=== PATIENT | male | born 1960 | race Two or more races ===

== ENCOUNTER → 2018-07-05 | Outpatient (CLI) | payer BC | LOC: FIMAGING 17:00 | PROVIDERS: ATTEND Family Medicine | DX: R50.9 Fever, unspecified (principal) ==

== ENCOUNTER 2018-07-09 13:55 | Observation (INO) | payer BC ==
[2018-07-09 14:32] LABS: PLATELET COUNT 230 10^3/uL (150-400)
[2018-07-09] MEDS ORDERED: fentaNYL 100 MCG/2 ML INJ IVP ONE (14:34)
[2018-07-09] MEDS ORDERED: NS 1,000 ML IV ONE (14:34)
[2018-07-09] MEDS ORDERED: ONDANSETRON DISINTEGRATING 4 MG TAB PO PRN (15:49)
[2018-07-09] MEDS ORDERED: ACETAMINOPHEN 325 MG TAB PO PRN (15:49)
[2018-07-09] MEDS ORDERED: ONDANSETRON 4 MG/2 ML VIAL IVP PRN (15:49)
--- NOTE | 2018-07-09 15:56 | EDPHY ---
H & P Stated Complaint: N/V/body aches Time Seen by Provider: 07/09/18 13:58 HPI/ROS: CHIEF COMPLAINT: Diarrhea, vomiting HISTORY OF PRESENT ILLNESS: This is a 58-year-old male referred to the emergency department from his primary care physician's office, Dr. Nery Le. Patient reports traveling out of the state and returning from [place] on Sunday, June 30. Several days later he developed an abrupt onset of cold symptoms, chills, fever, and cough. He was seen on July [address] Le office. Influenza, strep and chest x-ray were all negative. Patient then reports that on July 06 and he developed abdominal discomfort and diarrhea. Watery diarrhea with no blood. Multiple bouts. Diarrhea has somewhat subsided but today the patient had vomiting and presented to his primary care physician's office. He denies any ongoing fevers. He has had some lightheadedness but no fainting. No travel outside the [facility]. Denies any ingestion of scarlet lettuce. REVIEW OF SYSTEMS: A comprehensive 10 system review of systems was reviewed and is otherwise negative aside from elements mentioned in the history of present illness and medical decision making. 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 VITAL SIGNS Reviewed by me. GENERAL: Well-developed, well-nourished, resting comfortably in no respiratory distress. HEENT: Atraumatic. Eyes: No icterus, no injection. Mouth: Dry lips, slightly dry mucous membranes. No erythema or lesions. Neck: supple with no adenopathy. LUNGS: Clear to auscultation bilaterally, no wheezes, rhonchi or rales. CARDIAC: Regular rate and rhythm, no rubs, murmurs or gallops. ABDOMEN: Soft, mild inconsistent abdominal tenderness, no guarding or rebound. Nondistended, bowel sounds normal. BACK: No CVA tenderness. EXTREMITIES: No trauma. No edema. Range of motion is normal throughout. NEURO: Alert and oriented, grossly nonfocal. SKIN: Warm and dry, no rash. PSYCHIATRIC: Normal mentation, no agitation. - Medical/Surgical History Hx Asthma: No Hx Chronic Respiratory Disease: No Hx Diabetes: No Hx Cardiac Disease: No Hx Renal Disease: No Hx Cirrhosis: No Hx Alcoholism: No Hx HIV/AIDS: No Hx Splenectomy or Spleen Trauma: No Other PMH: hypothyroid, - Social History Smoking Status: Current every day smoker Constitutional: Initial Vital Signs Temperature (C) 36.6 C 07/09/18 13:57 Heart Rate 67 07/09/18 13:57 Respiratory Rate 18 07/09/18 13:57 Blood Pressure 111/78 07/09/18 13:57 O2 Sat (%) 98 07/09/18 13:57 O2 Delivery Mode Room Air Allergies/Adverse Reactions: Penicillins Allergy (Verified 07/09/18 15:47) Other-Enter Comments Home Medications: Medication Instructions Recorded Levothyroxine [Synthroid 112 mcg 112 mcg PO DAILY06 03/06/18 (*)] Lisinopril [Zestril 10 mg (*)] 10 mg PO DAILY 07/09/18 Metoprolol Succinate Xr [Toprol Xl 25 mg PO DAILY 07/09/18 25 mg (*)] Acetaminophen [Tylenol 325mg (*)] 650 mg PO Q4HRS PRN tab 07/10/18 Benzonatate [Tessalon Pearles] 100 mg PO TID PRN #21 cap 07/10/18 Oseltamivir Phosphate [Tamiflu 75 75 mg PO BIDMEAL #8 cap 07/10/18 mg (*)] Medical Decision Making ED Course/Re-evaluation: 58-year-old male presenting with fever, chills, cough which has now resolved, but then developed diarrhea. Patient looks quite well. IV was placed and patient received a L normal saline. CBC unremarkable. Chemistries demonstrated creatinine of 2.9. Patient's most recent creatinine was 0.8 in March. I discussed the lab tests with the patient. He understands that he has developed acute renal insufficiency probably secondary to diarrheal dehydration. Patient will be admitted to the hospital. Consult with Dr. Wang , who [facility]. Of note, patient's GI pathogen panel was negative. Differential Diagnosis: Differential diagnosis for the patient's diarrhea was considered including but not limited to gastroenteritis, colitis, diverticulitis, bacterial dysentery, viral diarrhea, medication effect, and malabsorption syndrome. Consult/Admit Bed Type: Dr. Wang, [facility] - Data Points Laboratory Results: Laboratory Results 07/09/18 14:20 07/09/18 14:20 Medications Given: Benzonatate (Tessalon Pearles) 100 mg PO TID PRN PRN Reason: Cough, Mild Stop: 01/05/19 23:03 Last Admin: 07/09/18 23:13 Dose: 100 mg Sodium Chloride (Ns) 1,000 mls @ 100 mls/hr IV CONT JENN Stop: 01/05/19 15:59 Last Admin: 07/09/18 18:33 Dose: 1,000 mls Levothyroxine Sodium (Synthroid) 112 mcg PO DAILY06 [facility] Stop: 01/06/19 05:59 Last Admin: 07/10/18 05:01 Dose: 112 mcg Metoprolol Succinate (Toprol Xl) 25 mg PO DAILY JENN Stop: 01/06/19 08:59 Last Admin: 07/10/18 10:53 Dose: 25 mg Oseltamivir Phosphate (Tamiflu) 75 mg PO BIDMEAL [facility] Stop: 07/14/18 08:01 Last Admin: 07/10/18 10:55 Dose: 75 mg Discontinued Medications Fentanyl (Sublimaze) 50 mcg IVP EDNOW ONE Stop: 07/09/18 14:35 Last Admin: 07/09/18 14:47 Dose: 50 mcg Sodium Chloride (Ns) 1,000 mls @ 0 mls/hr IV ONCE ONE; Wide Open PRN Reason: Protocol Stop: 07/09/18 14:35 Last Admin: 07/09/18 14:46 Dose: 1,000 mls Oseltamivir Phosphate (Tamiflu Oral Suspension) 30 mg PO BIDMEAL [facility] Stop: 07/14/18 08:01 Last Admin: 07/10/18 10:56 Dose: Not Given Departure - Departure Disposition: [facility] Acute Clinical Impression: Acute renal insufficiency Diarrhea Qualifiers: Diarrhea type: unspecified type Qualified Code(s): R19.7 - Diarrhea, unspecified Condition: Fair
[2018-07-09] MEDS ORDERED: NS 1,000 ML IV SCH (16:00)
--- NOTE | 2018-07-09 16:48 | PDGENHP ---
History and Physical - Chief Complaint Abdominal pain, N/V - History of Present Illness 58 y/o male presents with abdominal discomfort, N/V, cough, malaise, body aches , and diarrhea. He returned from [place] last Sunday and by , he began to have diarrhea, non-productive cough, night sweats and fevers. He did not have an appetite and was unable to keep anything down. He generally felt weak. He f/u with his PCP, Dr. Le on 07/05/18 and influenza PCR at that time was negative. He reports the diarrhea has subsided but he continues to have abdominal cramping and discomfort, nausea, and one episode of emesis today. He denies SOB, chest pains, dysuria, headache. Past Medical/Surgical History 1. Hypertension 2. Hypothyroid 3. Cardiomyopathy 4. Thoracic aortic aneurysm w/o rupture Social 1. 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 Stopped smoking cigarettes 3-4 months ago; recently went on vacation in [place] and smoked 1/2 pack for the 4 days he was there. Denies illicit drug use. 3. Drinks 1-2 alcohol drinks/week but while in [place], drank "alot" which included 2-3 cocktail drinks per day Vital Signs 111/78 67 HR 98% RA 36.6c 18 Respirations History Information - Allergies/Home Medication List Allergies/Adverse Reactions: Penicillins Allergy (Verified 07/09/18 15:47) Other-Enter Comments Home Medications: Levothyroxine [Synthroid 112 mcg (*)] 112 mcg PO DAILY06 03/06/18 [Last Taken AM] Lisinopril [Zestril 10 mg (*)] 10 mg PO DAILY 07/09/18 [Last Taken 07/08/18] Metoprolol Succinate Xr [Toprol Xl 25 mg (*)] 25 mg PO DAILY 07/09/18 [Last Taken 07/08/18] I have personally reviewed and updated: family history, medical history, social history, surgical history Past Medical History: See HPI List - Surgical History Additional surgical history: See HPI List - Family History Positive for: myocardial infarction Additional family history: Mother of [place] at age 86 y/o. Father is still alive at 99 y/o and is generally healthy - Social History Smoking Status: Current every day smoker Alcohol Use: Rarely Drug Use: None Review of Systems Review of Systems: ROS: 10pt was reviewed & negative except for what was stated in HPI & below Constitutional: Reports: malaise, recent illness, weakness, weight loss (He reports losing 10 lbs in 3 days) EENMT: Reports: no symptoms Cardiac: Reports: lightheadedness Respiratory: Reports: cough (Non-productive) Gastrointestinal: Reports: vomitting (Occurred one time this morning; orange color because of the liquids he attempting to drink), abdominal pain (Cramping) , diarrhea (Denies melena), nausea Genitourinary: Reports: no symptoms Muscolosketal: Reports: other (Body aches) Skin: Reports: no symptoms Neurological: Reports: weakness Hematologic/Lymphatic: Reports: no symptoms Immunologic/Allergy: Reports: other Physical Exam Physical Exam: Lab data reviewed Na: 132 Anion Gap: 15 Creatinine/BUN: 2.9/50 Lipase: 464 CXR 07/05/18: No acute processes Temp Pulse Resp BP Pulse Ox 36.6 C 76 18 121/76 H 96 07/09/18 13:57 07/09/18 16:00 07/09/18 16:00 07/09/18 16:00 07/09/18 16:00 Constitutional: appears nourished, uncomfortable, other (Pleasant, cooperative patient who is in no apparent distress) Eyes: PERRL, anicteric sclera, EOMI Ears, Nose, Mouth, Throat: hearing normal, ears appear normal, no oral mucosal ulcers, dry mucous membranes Cardiovascular: regular rate and rhythym, systolic murmur Peripheral Pulses: 2+: dorsalis-pedis (R) (Radial 2+), dorsalis-pedis (L) ( Radial 2+) Respiratory: no respiratory distress, no rales or rhonchi, clear to auscultation Gastrointestinal: normoactive bowel sounds, tenderness, other (Tender to LUQ; abdomen soft and round. No guarding, rebounding, roving's sign, holland's sign. No CVA tenderness. ) Genitourinary: no bladder fullness, no bladder tenderness Skin: warm, normal color, no rashes or abrasions, no fluctuance, no induration, No mottled Musculoskeletal: full muscle strength, no muscle tenderness, normal joint ROM, no joint effusions Neurologic: AAOx3, sensation intact bilaterally, CN II-XII Intact Psychiatric: interacting appropriately, not anxious, not encephalopathic, thought process linear Lymph, Heme, Immunologic: no cervical LAD, no supraclavicular LAD Lab Data & Imaging Review 07/09/18 14:20 07/09/18 14:20 WBC 4.71 10^3/uL (3.80-9.50) 07/09/18 14:20 RBC 5.71 10^6/uL (4.40-6.38) 07/09/18 14:20 Hgb 15.4 g/dL (13.7-17.5) 07/09/18 14:20 Hct 44.7 % (40.0-51.0) 07/09/18 14:20 MCV 78.3 fL (81.5-99.8) L 07/09/18 14:20 MCH 27.0 pg (27.9-34.1) L 07/09/18 14:20 MCHC 34.5 g/dL (32.4-36.7) 07/09/18 14:20 RDW 15.1 % (11.5-15.2) 07/09/18 14:20 Plt Count 230 10^3/uL (150-400) 07/09/18 14:20 MPV 9.7 fL (8.7-11.7) 07/09/18 14:20 Neut % (Auto) 70.9 % (39.3-74.2) 07/09/18 14:20 Lymph % (Auto) 20.4 % (15.0-45.0) 07/09/18 14:20 [place] % (Auto) 8.1 % (4.5-13.0) 07/09/18 14:20 Eos % (Auto) 0.0 % (0.6-7.6) L 07/09/18 14:20 Baso % (Auto) 0.4 % (0.3-1.7) 07/09/18 14:20 Nucleat RBC Rel Count 0.0 % (0.0-0.2) 07/09/18 14:20 Absolute Neuts (auto) 3.34 10^3/uL (1.70-6.50) 07/09/18 14:20 Absolute Lymphs (auto) 0.96 10^3/uL (1.00-3.00) L 07/09/18 14:20 Absolute Monos (auto) 0.38 10^3/uL (0.30-0.80) 07/09/18 14:20 Absolute Eos (auto) 0.00 10^3/uL (0.03-0.40) L 07/09/18 14:20 Absolute Basos (auto) 0.02 10^3/uL (0.02-0.10) 07/09/18 14:20 Absolute Nucleated RBC 0.00 10^3/uL (0-0.01) 07/09/18 14:20 Immature Gran % 0.2 % (0.0-1.1) 07/09/18 14:20 Immature Gran # 0.01 10^3/uL (0.00-0.10) 07/09/18 14:20 Sodium 132 mEq/L (135-145) L 07/09/18 14:20 Potassium 4.2 mEq/L (3.5-5.2) 07/09/18 14:20 Chloride 98 mEq/L (97-110) 07/09/18 14:20 Carbon Dioxide 19 mEq/l (22-31) L 07/09/18 14:20 Anion Gap 15 mEq/L (6-14) H 07/09/18 14:20 BUN 50 mg/dL (7-23) H 07/09/18 14:20 Creatinine 2.9 mg/dL (0.7-1.3) H 07/09/18 14:20 Estimated GFR 22 07/09/18 14:20 Glucose 148 mg/dL (70-100) H 07/09/18 14:20 Calcium 7.9 mg/dL (8.5-10.4) L 07/09/18 14:20 Total Bilirubin 0.7 mg/dL (0.1-1.4) 07/09/18 14:20 Conjugated Bilirubin 0.3 mg/dL (0.0-0.5) 07/09/18 14:20 Unconjugated Bilirubin 0.4 mg/dL (0.0-1.1) 07/09/18 14:20 AST 66 IU/L (17-59) H 07/09/18 14:20 ALT 53 IU/L (21-72) 07/09/18 14:20 Alkaline Phosphatase 84 IU/L (38-126) 07/09/18 14:20 Troponin I < 0.012 ng/mL (0.000-0.034) 07/09/18 14:20 Total Protein 7.8 g/dL (6.3-8.2) 07/09/18 14:20 Albumin 4.3 g/dL (3.5-5.0) 07/09/18 14:20 Lipase 464 IU/L (23-300) H 07/09/18 14:20 Assessment & Plan Plan: 58 y/o male presents with approximately 5 days worth of general malaise, diarrhea, cough, and abdominal cramping and discomfort. He has not been able to keep any food or liquids down. 1. Acute Kidney Injury: creatinine 2.9. I suspect hypovolemia secondary to poor oral intake and diarrhea -IVF -CBC/CMP tomorrow -Avoid nephrotoxic medications; holding his Lisinopril -Abdominal US 2. Diarrhea: his last bout of diarrhea was yesterday. Could be viral. -GI PCR Pathogen on 07/05 was negative -Encourage fluids/food -IVF 3. Cough -Influenza Pathogen on 07/05 was negative -Respiratory PCR Pathogen pending 4. Abdominal cramping/discomfort -IVF -Encourage fluids/food -Anti-emetics PRN for nausea -Abdominal US - lipase 464 5. Hypertension -May continue metoprolol XR -Continue to monitor -Echo on 03/23 showed LVEF 64%, ascending thoracic aorta 4.1 cm w/o dissection or rupturing symptoms. Stress test for 10 minutes with no ischemia and good BP control. -Educated pt on tobacco cessation -Reminded pt to f/u with Dr. Galan in October 2018 6. Hypothyroidism -May continue levothyroxine Diet: Regular VTE ppx: SCDs Code: Full Dispo: Admit to obs
[2018-07-09] MEDS: OSELTAMIVIR 6 MG/ML UDSYR PO SCH (21:20)
[2018-07-09] MEDS ORDERED: GUAIFENESIN/DM 10 ML UDCUP PO PRN (23:04)
[2018-07-09] MEDS ORDERED: BENZONATATE 100 MG CAP PO PRN (23:04)
[2018-07-10 05:22] LABS: PLATELET COUNT 217 10^3/uL (150-400)
[2018-07-10] MEDS ORDERED: LEVOTHYROXINE 112 MCG TAB PO SCH (06:00)
[2018-07-10] MEDS ORDERED: METOPROLOL SUCCINATE XR 25 MG TAB PO SCH (09:00)
--- NOTE | 2018-07-10 10:00 | ASMTCMCOM ---
CM Note CM Note Notes: Reviewed chart, pt admitted for abdominal pain. He works and lives alone, independent in ADLs. Anticipate he will dc home when medically stable, CM available for any changes. DC Plan: Independent Date Signed: 07/10/2018 10:00 AM Electronically Signed By:Gilda Buckley RN
[2018-07-10] MEDS: OSELTAMIVIR 6 MG/ML UDSYR PO SCH (10:56)
[2018-07-10] MEDS ORDERED: OSELTAMIVIR PHOSPHATE 75 MG CAP PO SCH (11:00)
[2018-07-10 12:04] VITALS: BP 117/81
--- NOTE | 2018-07-10 12:10 | HOSPPROG ---
Hospitalist Progress Note Assessment/Plan: 58 y/o male presents with approximately 5 days worth of general malaise, diarrhea, cough, and abdominal cramping and discomfort. He has not been able to keep any food or liquids down. First encounter, chart reviewed. *Influenza B -Tamiflu -resp precaution *GAYLE -creat much improved w hydration- initially was 2.9, now 1.6 (still higher than his baseline) -lisinopril on hold till this improves -he will get labs rechecked on Sunday *diarrhea -resolved *abdominal pain and discomfort -ultrasound shows nothing acute, fatty liver, needs to get f/u *hypertension -Metoprolol -echo in march showed an ascending thoracic aorta of 4.1 cm. to f/u with cardiology *nicotine use -cessation recommended *hypothyroidism -Synthroid *Plan: dc home w close f/u with his pcp Subjective: Karan said he is feeling much better today, has no complaints, eating a bit and drinking well. Objective: Vital Signs Temp Pulse Resp BP Pulse Ox 37.1 C 74 16 131/80 H 94 07/10/18 07:57 07/10/18 10:53 07/10/18 07:57 07/10/18 10:53 07/10/18 07:57 Microbiology 07/09/18 18:30 Respiratory Panel (PCR) - Final Nasal, Sinus - [place] Viral Transport Influenza Virus Type B Laboratory Results 07/10/18 04:27 07/10/18 04:27 07/09/18 07/10/18 07/11/18 05:59 05:59 05:59 Intake Total 500 Balance 500 - Physical Exam Constitutional: no apparent distress, appears nourished Eyes: PERRL Ears, Nose, Mouth, Throat: hearing normal Cardiovascular: regular rate and rhythym Respiratory: no respiratory distress, clear to auscultation Gastrointestinal: normoactive bowel sounds, tenderness (slight tenderness on his left upper abdominal area) Skin: warm Musculoskeletal: full muscle strength Neurologic: AAOx3 Psychiatric: interacting appropriately ICD10 Worksheet Patient Problems: Problems Problem Status Onset Acute renal insufficiency Acute Diarrhea Acute
--- NOTE | 2018-07-10 16:35 | GDS ---
DISCHARGE DIAGNOSES: 1. Influenza B. 2. Acute kidney injury. 3. Diarrhea. 4. Abdominal pain and discomfort. 5. Hypertension. 6. Nicotine use. 7. Hypothyroidism. HISTORY: Briefly, the patient is a 58-year-old male who presented with approximately 5 days of general malaise, diarrhea, cough, and abdominal cramping and discomfort. He was not able to keep any fluids down. He initially saw his primary care doctor and was not noted to have any type of respiratory illness. During this admission, he was checked for influenza and noted to have influenza B. He has been started on Tamiflu. He is feeling markedly better. HOSPITAL COURSE: 1. Influenza B. Tamiflu, respiratory precautions. I have told him to take it easy this week. 2. Acute kidney injury. This is much improved with hydration. His creatinine initially was 2.9, now 1.6. Holding his lisinopril until this improves. I told him he needs to get his laboratory data rechecked on Sunday to make sure he gets back to baseline. 3. Diarrhea, none further. 4. Abdominal pain and discomfort. His ultrasound shows a diffuse fatty infiltration of the liver. I told him weight loss would likely help this and to get further followup with this. He has some discomfort in the left upper quadrant, but is much improved. 5. Hypertension, on metoprolol. He had an echo in March that showed an ascending thoracic aorta of 4.1 cm. He is to follow up with Cardiology. 6. Nicotine use. Cessation was recommended. 7. Hypothyroidism, on Synthroid. DISCHARGE CONDITION: Stable. Blood pressure is 117/81, heart rate of 73, respiratory rate of 16, O2 sats on room air 93%. Temperature is 36.5 Celsius. DISCHARGE MEDICATIONS: Please see the EMR. DISCHARGE INSTRUCTIONS: 1. To take it easy this next week, not to be at work, take the Tamiflu as prescribed. 2. Hold the lisinopril until he sees his primary care doctor. 3. To get a chemistry panel on July 15, for followup in regard to his kidney function. 4. To follow up with Dr. Gil Galan in regard to his ascending thoracic aorta. 5. He has a diffuse fatty liver. This should be followed up by his primary care provider. /[id number]/MODL MTDD
== END 2018-07-10 14:30 | disposition home or self-care (01) ==
LOC: F3E 16:47
PROVIDERS: ADMIT Internal Medicine; ATTEND Internal Medicine
DX: N17.9 Acute kidney failure, unspecified (principal); J11.2 Influenza due to unidentified influenza virus with gastrointestinal manifestations; K76.0 Fatty (change of) liver, not elsewhere classified; R19.7 Diarrhea, unspecified; I10 Essential (primary) hypertension; E03.9 Hypothyroidism, unspecified; F17.210 Nicotine dependence, cigarettes, uncomplicated; Z88.0 Allergy status to penicillin; E86.0 Dehydration
CPT/HCPCS: 76700; 96361; 96374; 99285; G0378; J3010